=== PATIENT | male | born 1960 | race Hispanic/Latino ===

== ENCOUNTER 2019-12-31 13:39 | Outpatient (CLI) | payer OTHER | END 2019-12-31 13:40 | disposition home or self-care (01) | LOC: DTY/OP 13:39 | PROVIDERS: ATTEND Family Medicine | DX: R73.03 Prediabetes (principal) | CPT/HCPCS: 97802 ==

== ENCOUNTER 2025-10-14 08:10 | Outpatient (CLI) | payer BC | END 2025-10-14 08:11 | disposition home or self-care (01) | LOC: SCSMRI 08:10 | PROVIDERS: ATTEND Physician Assistant Surgical | DX: M24.812 Other specific joint derangements of left shoulder, not elsewhere classified (principal); S42.125A Nondisplaced fracture of acromial process, left shoulder, initial encounter for closed fracture; M79.89 Other specified soft tissue disorders; M75.122 Complete rotator cuff tear or rupture of left shoulder, not specified as traumatic; M62.522 Muscle wasting and atrophy, not elsewhere classified, left upper arm; S43.005A Unspecified dislocation of left shoulder joint, initial encounter; M67.814 Other specified disorders of tendon, left shoulder; M19.012 Primary osteoarthritis, left shoulder; M25.412 Effusion, left shoulder ==